=== PATIENT | female | born 1995 | race Caucasian/White ===

== ENCOUNTER 2016-07-24 02:52 | Emergency (ER) | payer OTHER ==
[~2016-07-24] VITALS: Ht 160 cm; Wt 83.9 kg
--- NOTE | 2016-07-24 03:10 | ED GI/GU/ABDOMINAL COMPLAINT ---
History of Present Illness General Chief Complaint: Nausea, Vomiting, Diarrhea Stated Complaint: "VOMITING" Source: patient, friend Exam Limitations: intoxication Vital Signs & Intake/Output Vital Signs & Intake/Output Vital Signs Date Time Temp Pulse Resp B/P B/P Pulse O2 O2 Flow FiO2 Mean Ox Delivery Rate 07/24 0450 98.6 134 18 118/68 99 Room Air 07/24 0314 98 Room Air 07/24 0303 99.9 155 20 142/77 97 Room Air Allergies Coded Allergies: No Known Allergies (07/24/16) Reconcile Medications Ondansetron (Zofran Odt) 4 MG TAB.RAPDIS 1 TAB SL TID PRN nausea Triage Nurses Notes Reviewed? yes ? n Is pt currently ? No Onset: Abrupt Duration: hour(s): Timing: single episode today Quality/Severity: vomiting Location: generalized abdomen Radiation: no radiation Prior Abdominal Problems: none Modifying Factors: Worsens With: vomiting. Associated Symptoms: nausea/vomiting, dizziness HPI: 21 yo woman presents with acute onset of nausea and vomiting after attending a green party. Her boyfriend has similar, but less, symptoms. Per the boyfriend, "It began after we ate the marijuana [employer]." She also has been drinking alcohol. She presents acutely vomiting, somnolent. Past History Travel History Traveled to [place] past 21 day No Medical History Any Pertinent Medical History? see below for history Surgical History Surgical History: none Psychosocial History What is your primary language Danish Tobacco Use: Current Daily Use Daily Tobacco Use Amount/Type: =< 4 Cigarettes daily Family History Hx Contributory? No Review of Systems Review of Systems Constitutional: Reports: no symptoms. EENTM: Reports: no symptoms. Respiratory: Reports: no symptoms. Cardiovascular: Reports: no symptoms. GI: Reports: no symptoms. Genitourinary: Reports: no symptoms. Musculoskeletal: Reports: no symptoms. Skin: Reports: no symptoms. Neurological/Psychological: Reports: no symptoms. Hematologic/Endocrine: Reports: no symptoms. Immunologic/Allergic: Reports: no symptoms. All Other Systems: Reviewed and Negative Physical Exam Physical Exam General Appearance: well developed/nourished, mild distress, moderate distress Head: atraumatic, normal appearance Eyes: Bilateral: normal appearance. Ears, Nose, Throat, Mouth: hearing grossly normal Neck: normal inspection, supple, full range of motion, normal alignment Respiratory: normal breath sounds, chest non-tender, no respiratory distress, quiet respiration, lungs clear Cardiovascular: regular rate/rhythm Gastrointestinal: normal bowel sounds, soft, non-tender, no organomegaly Back: normal inspection Extremities: normal range of motion Neurologic/Psych: somnolent but easily arousable, responsive to questions with mumbling Skin: intact, normal color, warm/dry Core Measures ACS in differential dx? No Severe Sepsis Present: No Septic Shock Present: No Progress Differential Diagnosis: intoxication vs drug side effect vs other. Plan of Care: Orders Procedure Date/time Status URINE DRUG SCREEN FOR ER ONLY 07/24 313 Complete LIPASE 07/24 313 Complete HUMAN BETA HCG SCREEN 07/24 313 Complete ETHANOL 07/24 313 Complete COMPREHENSIVE METABOLIC PANEL 07/24 313 Complete CBC WITHOUT DIFFERENTIAL 07/24 313 Complete AMYLASE 07/24 313 Complete Laboratory Tests 07/24/16 0335: Urine Opiates Screen < 100.00, Methadone Screen < 40, Barbiturate Screen < 60, Ur Phencyclidine Scrn < 6.00, Amphetamines Screen < 100, U Benzodiazepines Scrn < 85, Urine Cocaine Screen < 50, Urine Cannabis Screen 79.80 H 07/24/168: Anion Gap 17 H, Estimated GFR > 60, BUN/Creatinine Ratio 17.5, Glucose 146 H, Calcium 9.4, Total Bilirubin 0.8, AST 27, ALT 29, Alkaline Phosphatase 68, Total Protein 7.3, Albumin 4.1, Globulin 3.2, Albumin/Globulin Ratio 1.3, Amylase 63, Lipase 86, Total Beta HCG NEGATIVE, CBC w Diff MAN DIFF ORDERED, RBC 4.90, MCV 85.2, MCH 28.5, RDW 12.8, MPV 7.6, Gran % 54.2, Lymphocytes % 37.0, Monocytes % 7.6, Eosinophils % 0.9, Basophils % 0.3, Absolute Granulocytes 8.8 H, Segmented Neutrophils 51, Absolute Lymphocytes 6.0 H, Lymphocytes 41, Monocytes 8, Absolute Monocytes 1.2 H, Absolute Eosinophils 0.1, Absolute Basophils 0.1, Platelet Estimate ADEQUATE, Normocytic RBCs VERIFIED, Normochromic RBCs VERIFIED , PUBS MCHC 33.4, Fld Total RBCs Counted 100, Serum Alcohol < 10.0 Initial ED EKG: none Departure Departure Disposition: HOME OR SELF CARE Condition: Stable Clinical Impression Primary Impression: Acute vomiting Secondary Impressions: Marijuana abuse Referrals: UNKNOWN (PCP/Family) Departure Forms: Customer Survey General Discharge Information Prescriptions: Current Visit Scripts Ondansetron (Zofran Odt) 1 TAB SL TID PRN nausea #10 TAB Ref 1 Comments 07/24/16, 5am... pt feeling well after iv fluids and supportive measures... pt safe for discharge with close follow up if vomiting recurs.
[2016-07-24 03:31] LABS: ABSOLUTE BASOPHIL COUNT 0.1 /CUMM (0.0-0.2); ABSOLUTE EOSINOPHIL COUNT 0.1 /CUMM (0.0-0.7); ABSOLUTE GRANULOCYTE CT 8.8 /CUMM (1.4-6.5); ABSOLUTE MONOCYTE COUNT 1.2 /CUMM (0.10-0.60); BASOPHIL % 0.3 % (0.0-2.0); EOSINOPHIL % 0.9 % (0-5); GRANULOCYTE % 54.2 % (42.2-75.2); HEMATOCRIT 41.7 % (37-47); MEAN CORPUSCULAR HGB 28.5 PG (27.0-31.0); MEAN CORPUSCULAR HGB CONC 33.4 G/DL (33.0-37.0); MEAN CORPUSCULAR VOLUME 85.2 FL (81.0-99.0); MEAN PLATELET VOLUME 7.6 FL (7.4-10.4); PLATELET COUNT 364 /CUMM (130-400); RBC DISTRIBUTION WIDTH 12.8 % (11.5-14.5); WHITE BLOOD CELL COUNT 16.3 /CUMM (4.8-10.8)
[2016-07-24] MEDS ORDERED: ZOFRAN ODT4 M1 SL (04:37)
[2016-07-24 04:50] VITALS: BP 118/68
== END 2016-07-24 04:57 ==
LOC: ERH 02:52
PROVIDERS: Pediatrics
DX: R11.10 Vomiting, unspecified (principal); F12.10 Cannabis abuse, uncomplicated
CPT/HCPCS: 80307; 96361; 96374; 96376; 99291; G0480; J2405